=== PATIENT | female | born 1975 | race African-American/Black ===

== ENCOUNTER 2024-02-24 17:48 | Emergency (ER) | payer MEDICAID ==
[~2024-02-24] VITALS: Ht 162.6 cm; Wt 80.0 kg
[2024-02-24 18:33] VITALS: O2SAT 98
[2024-02-24 20:39] LABS: CLARITY URINE CLOUDY (CLEAR); COLOR URINE YELLOW (YELLOW); GLUCOSE URINE NEGATIVE (NEGATIVE); KETONES URINE NEGATIVE (NEGATIVE); LEUKOCYTE ESTERASE URINE TRACE (NEGATIVE); NITRITE URINE NEGATIVE (NEGATIVE); OCCULT BLOOD URINE NEGATIVE (NEGATIVE); PROTEIN URINE NEGATIVE (NEGATIVE); SPECIFIC GRAVITY URINE 1.011 (1.005-1.030); UROBILINOGEN URINE 0.2 E.U./dL (0.2-1.0)
[2024-02-24 20:54] LABS: BACTERIA URINE 1+; RBC URINE 0-2 /hpf (0-2); SQUAMOUS EPITHELIAL CELL URINE 2+ /lpf (RARE/1+)
[2024-02-24 21:42] LABS: EOSINOPHILS % 5.9 % (0.0-5.0); HEMOGLOBIN. 12.5 g/dL (12.0-16.0); LYMPHOCYTES % 58.9 % (20.0-50.0); MEAN CORPUSCULAR HEMOGLOBIN 31.1 pg (28.0-32.0); MEAN CORPUSCULAR HGB CONC 33.9 g/dL (31.0-37.0); MEAN CORPUSCULAR VOLUME 91.8 fL (81.0-99.0); MEAN PLATELET VOLUME 11.9 fl (7.4-10.4); MONOCYTES % 8.4 % (2.0-8.0); NEUTROPHILS % 25.8 % (40.0-76.0); PLATELET 150 x1000/uL (130-400); RED BLOOD CELL COUNT 4.03 mill/uL (4.2-5.4); RED CELL DISTRIBUTION WIDTH 12.9 % (11.6-14.6); WHITE BLOOD COUNT 3.9 x1000/uL (4.5-11.0)
[2024-02-24 21:45] LABS: POTASSIUM 3.5 mEq/L (3.5-5.1)
[2024-02-24 21:46] LABS: CALCIUM 9.7 mg/dL (8.7-10.4)
[2024-02-24 21:51] LABS: CREATININE 1.2 mg/dL (0.6-1.0)
[2024-02-24] MEDS: ACETAMINOPHEN 325MG TABLET PO NR (21:55)
[2024-02-25 00:02] LABS: TROPONIN I HIGH SENSITIVITY 8 ng/L (3.0-34)
[2024-02-25] MEDS ORDERED: ACET-2708 PO (00:31)
[2024-02-25] MEDS ORDERED: NITR100C PO (00:31)
[2024-02-25 01:26] VITALS: BP 140/98; PULSE 90; RESP 19; TEMP 36.61404; O2SAT 100
== END 2024-02-25 00:48 | disposition home or self-care (01) ==
LOC: ER 17:48
DX: M25.562 Pain in left knee (principal); M25.561 Pain in right knee; M60.80 Other myositis, unspecified site; N39.0 Urinary tract infection, site not specified; D64.9 Anemia, unspecified; Z88.8 Allergy status to other drugs, medicaments and biological substances
CPT/HCPCS: 36415; 71045; 73562; 80048; 81003; 83880; 84484; 85025; 93005; 99285